=== PATIENT | male | born 1960 | race Caucasian/White ===

== ENCOUNTER 2017-02-09 20:01 | Emergency (ER) | payer MEDICARE, OTHER ==
[~2017-02-09 20:01] MED LIST: ASPIRIN PO; ASPIRIN81 M2 PO; CADUET 10 MG/201 TAB PO; CADUET 5 MG-201 EACH PO; CADUET 5 MG/201 TAB PO; CIPRO PO; DARVOCET-N 1001 TAB PO; DIAZEPAM; DIAZEPAM PO; DICLOFENAC PO; FLEXERIL PO; FLOMAX0.4 M1 PO; FOLIC ACID PO; HYDROCODONE-APA1 T30 PO; KETOPROFEN PO; KLONOPIN PO; KROGER PHARMACY; LAMICTAL25 MG PO; LEVSIN0.125 M1 DOB; LORTAB 5/500 TA1 TA1 PO; LORTAB 7.5-5001 TAB; MEDROL DOSEPAK4 MG PO; MEDROL PO; MEDROL4 MG/DOSE- PO; MS CONTIN15 MG PO; NEXIUM PO; NORVASC; NORVASC PO; OMEPRAZOLE40 M1 PO; OXYCONTIN; OXYCONTIN PO; PENICILLIN PO; PERCOCET 10/3251 TAB PO; PERCOCET10; PERCOCET10 PO; PHENERGAN25 MG PO; PREDNISONE10 MG PO; PREVACID PO; PRILOSEC20 M1 PO; PROTONIX20 MG PO; PYRIDIUM PO; ROXICODONE I20 MG/ML PO; ST JOSEPH ASPIR81 M1 PO; TORADOL10 MG PO; TRAMADOL HCL50 M1; TRAMADOL HCL50 M2 PO; TYLOX1 CAP 5/50 PO; ULTRAM ER300 MG PO; ULTRAM PO; VICODIN 5/500 T1 TAB PO; VICODIN PO; ZOCOR; ZOCOR PO
== END 2017-02-09 20:05 | disposition left against medical advice (07) ==
LOC: CED 20:01
DX: Z53.21 Procedure and treatment not carried out due to patient leaving prior to being seen by health care provider (principal)

== ENCOUNTER 2017-03-08 12:37 | Emergency (ER) | payer MEDICARE ==
--- NOTE | ~2017-03-08 | CR230 ---
[facility] A Service of [facility] & [facility] RADIOLOGY TEXT RESULTS PATIENT: JHONATAN MIDDLETON LOCATION: [facility] : 64 UNIT #: [id number] AGE: [address]: Rosendo Matt MD SEX: M ORDER DR: [id number] [facility] [address]. [place], [place] [address] [id number] MR#: [id number] Acc #: [id number] NAME: JHONATAN MIDDLETON : 1960 SEX: M STUDY DATE/TIME: 03/08/2017 UNIT: [facility] ROOM: STUDY DESCRIPTION: CR Shoulder Min 2 View Rt Attending Physician: Rosendo Matt M.D. Ordering Physician: Rosendo Matt M.D. Primary Care Physician: Azeem Jensen M.D. MEDICAL IMAGING REPORT This report is preliminary unless electronic signature is present EXAM Right shoulder 03/08/2017, 1326 hours HISTORY 1-week history of right shoulder pain, back pain. No known injury. COMPARISON None. FINDINGS AP views in internal-external rotation and a scapula Y-view demonstrate no fracture or dislocation. There is mild sclerotic change at the greater tuberosity at the rotator cuff insertion site. IMPRESSION Degenerative sclerotic change at the rotator cuff insertion site on the greater tuberosity. There is no fracture or dislocation. Dictated by... Tonja Gutierrez M.D. THIS IS AN ELECTRONICALLY VERIFIED REPORT Tonja Gutierrez M.D. at 03/09/2017 9:31 AM JOHNNY/dolores TD: 03/08/2017 15:28 JOB #: [id number] MEDICAL IMAGING REPORT Page 1 of 1 COPY
--- NOTE | ~2017-03-08 | CR243 ---
[facility] A Service of [facility] RADIOLOGY TEXT RESULTS PATIENT: JHONATAN MIDDLETON LOCATION: [facility] : 64 UNIT #: [id number] AGE: [address]: Rosendo Matt MD SEX: M ORDER DR: [id number] [place] [facility]. [place], [place] [address] [id number] E MR#: [id number] Acc #: [id number] NAME: JHONATAN MIDDLETON. : 1960 SEX: M STUDY DATE/TIME: 03/08/2017 13:28 UNIT: [facility] ROOM: STUDY DESCRIPTION: CR Thoracic Spine 3 Views Attending Physician: Rosendo Matt M.D. Ordering Physician: Rosendo Matt M.D. Primary Care Physician: Azeem Jensen M.D. MEDICAL IMAGING REPORT This report is preliminary unless electronic signature is present EXAM Thoracic spine series. DATE OF EXAM 03/08/2017, 1328 hours. CLINICAL HISTORY 56-year-old man with 1-week history of right-sided mid thoracic pain, right shoulder pain with no known injury. COMPARISON Chest CT with sagittal and coronal reconstructions, 06/07/2011. FINDINGS AP, lateral views of the thoracic spine and a lateral swimmers view were performed. Thoracic spine is normally aligned. There is no deviation of the left paraspinous line. There is mild endplate spurring, but no compression fracture or subluxation. Fusion changes are noted in lower cervical spine with hardware present both anteriorly and posteriorly. IMPRESSION Negative thoracic spine series. There is mild endplate spurring similar to CT chest 06/07/2011. There is no fracture or subluxation. Hardware is noted both anteriorly and posteriorly in the lower cervical spine. Dictated by... Tonja Gutierrez M.D. THIS IS AN ELECTRONICALLY VERIFIED REPORT Tonja Gutierrez M.D. at 03/09/2017 9:31 AM JOHNNY/joesph [facility] A Service of [facility] RADIOLOGY TEXT RESULTS PATIENT: JHONATAN MIDDLETON [id number] : 64 UNIT #: [id number] AGE: [address]: Rosendo Matt MD SEX: M ORDER DR: TD: 03/08/2017 15:32 JOB #: [id number] MEDICAL IMAGING REPORT Page 1 of 1 COPY
== END 2017-03-08 14:30 | disposition home or self-care (01) ==
LOC: CED 12:37
DX: S46.911A Strain of unspecified muscle, fascia and tendon at shoulder and upper arm level, right arm, initial encounter (principal); K21.9 Gastro-esophageal reflux disease without esophagitis; F17.200 Nicotine dependence, unspecified, uncomplicated; Z87.442 Personal history of urinary calculi; Z98.890 Other specified postprocedural states; Z88.8 Allergy status to other drugs, medicaments and biological substances; Z88.5 Allergy status to narcotic agent; Z79.82 Long term (current) use of aspirin; Z79.899 Other long term (current) drug therapy; X58.XXXA Exposure to other specified factors, initial encounter; Y92.9 Unspecified place or not applicable
CPT/HCPCS: 72072; 73030; 96372; 99283; 99284; J1885